=== PATIENT | female | born 1990 | race Native Hawaiian/Other Pacific Islander ===

== ENCOUNTER 2018-07-23 17:23 | Outpatient (CLI) | payer OTHER | END 2018-07-23 21:38 | disposition home or self-care (01) | LOC: RAD 17:23 | DX: R05 Cough (principal) ==

== ENCOUNTER 2021-04-06 10:09 | Outpatient (CLI) | payer OTHER ==
[2021-04-06 10:58] LABS: PLATELET COUNT 382 K/uL (152-353)
[2021-04-06 11:06] LABS: POTASSIUM 3.9 mmol/L (3.6-5.2)
== END 2021-04-06 20:11 | disposition home or self-care (01) ==
LOC: LABW 10:09
PROVIDERS: ATTEND Nurse Practitioner Family
DX: L65.9 Nonscarring hair loss, unspecified (principal); Z79.899 Other long term (current) drug therapy
CPT/HCPCS: 36415; 80053; 82306; 82626; 82728; 83540; 83550; 84270; 84402; 84403; 84439; 84443; 85027; 86038; 86376